=== PATIENT | male | born 1940 | race Caucasian/White ===

== ENCOUNTER 2018-04-11 22:34 | Emergency (ER) | payer MEDICARE, OTHER ==
--- NOTE | 2018-04-11 22:38 | ED Physician Documentation ---
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 "I have several times but they bring me back" . He states he did sell his house and he bought a new one so he was wanting to celebrate so he did have some ecigarettes. He states he had the same issue with high blood pressure once before when he used an ecigarette. He states tonight he had one of the ecigarettes and noticed "I didnt feel so well" so he did take his b/p at home are reports 170's /116's. He states he does get anxious whene the number gets high due to the anurysm. He states he had some mild nausea and "just didnt feel well" . He did take his clonidne 0.2mg about 45 min ago and does note he is feeling better but would like to "just be checked out" .) Last known Well Code/Unknown Code: Unknown - ROS CONST: no problems CVS/RESP: denies: chest pain, shortness of breath, cough GI/: nausea (mild ). denies: abdominal pain MS/SKIN/LYMPH: denies: leg swelling, rash NEURO/PSYCH: anxiety. denies: headache, fainting, dizziness, tingling, numbness , difficulty walking, difficulty with speech, depression - PAST HX Past History: hypertension Surgeries/Procedures: cardiac stent Immunizations: UTD Allergies/Adverse Reactions: Allergies Allergy/AdvReac Type Severity Reaction Status Date / Time No Known Allergies Allergy Verified 09/07/16 23:34 Home Medications: Ambulatory Orders Medication Instructions Recorded Carvedilol [Coreg] 12.5 mg PO BID 09/29/15 Lisinopril [Prinivil] 20 mg PO BID 09/29/15 Alprazolam [Xanax] 0.5 mg PO BID 10/17/15 CloNIDine HCL [Catapress] 0.2 mg PO BID 10/17/15 Acetaminophen [Mapap] 500 mg PO HS 04/11/18 Aspirin 81 mg PO DAILY 04/11/18 - SOCIAL HX Smoking History: quit greater than 1 year Alcohol Use: none Drug Use: none - FAMILY HX Family History: No - VITAL SIGNS Vital Signs: Vital Signs Temp Pulse Resp BP Pulse Ox 115/73 09/08/16 00:04 - REVIEWED ASSESSMENTS Nursing Assessment Reviewed: Yes Vitals Reviewed: Yes Progress - Progress Progress: 2320: back from xray. In bed talking. no complaints DG ED Results Lab/Radiology - Radiology Radiology Impressions: PA and lateral chest Clinical history: PT STATES HYPERTENSION X2 DAYS Findings: Examination of the chest in PA and lateral views with no prior films for comparison demonstrates the lungs to be clear. Cardiac silhouette is within normal limits and the aorta is atherosclerotic. There are multiple sternotomy wires. Mild degenerative changes are seen in the thoracic vertebrae. Impression: 1. Postoperative chest. 2. Aortic atherosclerosis. 3. No active disease. Electronically signed on Apr 11, 2018 11:35:22 PM CDT by: Chip Chris General Adult Physical Exam - PHYSICAL EXAM GENERAL APPEARANCE: no distress EENT: eye inspection normal, ENT inspection normal, pharynx normal NECK: normal inspection RESPIRATORY: no resp distress, chest non-tender, breath sounds normal CVS: reg rate & rhythm, equal pulses, no murmur, murmur (He reports this is normal ) ABDOMEN: soft, normal bowel sounds, no distension, non-tender SKIN: warm/dry, normal color EXTREMITIES: non-tender, normal range of motion, no evidence of injury, no edema NEURO: oriented X3, CN's nml as tested, motor nml, sensation nml, mood/affect nml, cognition normal Discharge Clincal Impression: Essential hypertension Referrals: Katie Fajardo MD [Primary Care Provider] - 2 Days Additional Instructions: 1. continue meds as prescribed 2. NO ECigarettes 3. Plenty of fluids 4. Follow up with PCP in 2-4 days 5. Return to ER for any concerns Condition: Stable Disposition: 01 HOME, SELF-CARE Decision to Admit: NO Date of Decison to Admit: 04/12/18 Decision Time: 00:01
[2018-04-11 22:54] VITALS: BP 154/102
[2018-04-11 23:37] LABS: BASOPHILS % 0.4 (0.0-1.5); EOSINOPHILS % 2.8 % (0.0-6.8); MEAN CORPUSCULAR HEMOGLOBIN 32.8 pg (28.0-34.0); MEAN CORPUSCULAR VOLUME 94.8 fl (80.0-100.0); MONOCYTES % 5.8 % (0.0-11.0); NEUTROPHILS # 2.8 # k/uL (1.4-7.7)
--- NOTE | 2018-04-11 23:41 | Diagnostic Imaging Report ---
[facility] [address] [id number] Report Submission Date: Apr 11, 2018 11:35:22 PM CDT Patient Study Name: LAKSHMI YOUSSEF Date: Apr 11, 2018 11:10:53 PM CDT Modality Type: DX Gender: M Description: CHEST : 44 Institution: [facility] Physician: YESENIA MONTEIRO PA and lateral chest Clinical history: PT STATES HYPERTENSION X2 DAYS Findings: Examination of the chest in PA and lateral views with no prior films for comparison demonstrates the lungs to be clear. Cardiac silhouette is within normal limits and the aorta is atherosclerotic. There are multiple sternotomy wires. Mild degenerative changes are seen in the thoracic vertebrae. Impression: 1. Postoperative chest. 2. Aortic atherosclerosis. 3. No active disease. Electronically signed on Apr 11, 2018 11:35:22 PM CDT by: Chip JONES
[2018-04-11 23:44] LABS: eGFR (African) > 60; eGFR (Non-African) 57
== END 2018-04-12 00:09 | disposition home or self-care (01) ==
LOC: ED 22:34
DX: I10 Essential (primary) hypertension (principal)
CPT/HCPCS: 71046; 80053; 82550; 84484; 85025; 99285; S1016

== ENCOUNTER 2019-07-11 23:49 | Emergency (ER) | payer MEDICARE, OTHER ==
[2019-07-12 00:11] VITALS: BP 117/75
--- NOTE | 2019-07-12 00:11 | ED Physician Documentation ---
General Adult - HISTORIAN Historian: patient - HPI Stated Complaint: " I am not sure but I think a spider might of bit me" Chief Complaint: General Adult Additional Information: FOUND SPIDER ON RT POST SHOULDER-CONCERN IF BIT HIM Onset: minutes, hours (2HRS AAGO) Timing: still present Severity: mild - ROS CONST: no problems EYES/ENT: none CVS/RESP: none GI/: none MS/SKIN/LYMPH: none - PAST HX Past History: hypertension, other (AORTIC ANEURYSMS ONE IN ASCENDING CHEST ONE OPERASTED ABDOMEN) Surgeries/Procedures: other (AAA REPAIIR) Allergies/Adverse Reactions: Allergies Allergy/AdvReac Type Severity Reaction Status Date / Time No Known Allergies Allergy Verified 09/07/16 23:34 Home Medications: Ambulatory Orders Medication Instructions Recorded Carvedilol [Coreg] 12.5 mg PO BID 09/29/15 Lisinopril [Prinivil] 20 mg PO BID 09/29/15 ALPRAZolam [Xanax] 0.5 mg PO BID 10/17/15 Acetaminophen [Mapap] 500 mg PO Q4H PRN 04/11/18 Aspirin 81 mg PO BID 04/11/18 Cephalexin [Keflex] 1 cap PO BID 07/12/19 - SOCIAL HX Smoking History: non-smoker Alcohol Use: none Drug Use: none - FAMILY HX Family History: No - VITAL SIGNS Vital Signs: Vital Signs Temp Pulse Resp BP Pulse Ox 97.7 F 79 16 120/84 99 07/12/19 00:00 07/12/19 00:00 07/12/19 00:00 07/12/19 00:00 07/12/19 00:00 - REVIEWED ASSESSMENTS Nursing Assessment Reviewed: Yes Vitals Reviewed: Yes General Adult Physical Exam - PHYSICAL EXAM GENERAL APPEARANCE: no distress NECK: normal inspection, thyroid normal, other (NO EVIDENCE BITE ON NECK OR SHOULDER) RESPIRATORY: no resp distress, chest non-tender CVS: reg rate & rhythm, murmur. No: heart sounds normal ABDOMEN: soft, non-tender BACK: normal inspection, no CVA tenderness SKIN: warm/dry, normal color. No: cyanosis, diaphoresis, jaundice EXTREMITIES: non-tender, normal range of motion NEURO: oriented X3, motor nml, sensation nml Discharge Clincal Impression: POSSIBLE SPIDER BITE RT POST SHOULDER Referrals: Katie Fajardo MD [Primary Care Provider] - 2 Days Comments: NONE EVIDENT THIS EXAM Condition: Good Disposition: 01 HOME, SELF-CARE Decision to Admit: NO Decision Time: 00:16
== END 2019-07-12 00:10 | disposition home or self-care (01) ==
LOC: ED 23:49
DX: S40.261A Insect bite (nonvenomous) of right shoulder, initial encounter (principal); W57.XXXA Bitten or stung by nonvenomous insect and other nonvenomous arthropods, initial encounter
CPT/HCPCS: 99281; 99282